=== PATIENT | male | born 1940 | race Caucasian/White ===

== ENCOUNTER 2020-03-08 12:15 | Inpatient (IN) ==
[2020-03-08 13:02] LABS: Basophils % 0.4 %; Eosinophils # 0.1 K/mcL (0.0-0.6); Eosinophils % 0.8 %; Hematocrit 37.5 % (37.5-50.1); Hemoglobin 12.4 g/dL (12.9-16.9); Immature Granulocytes % 0.3 % (0-4); Lymphocytes # 1.3 K/mcL (0.6-4.6); Lymphocytes % 15.9 %; Mean Corpuscular HGB Conc 33.1 g/dL (31.6-35.5); Mean Corpuscular Hemoglobin 31.2 pg (28.0-33.3); Mean Corpuscular Volume 94.2 fL (83.0-100.0); Mean Platelet Volume 11.3 fL (9.4-12.4); Monocytes # 0.8 K/mcL (0.0-1.3); Monocytes % 9.9 %; Neutrophils # 5.8 K/mcL (1.6-8.9); Platelet Count 200 K/mcL (140-400); Red Blood Count 3.98 M/mcL (4.19-5.50); Red Cell Distribution Width 12.6 % (11.5-14.5); Segmented Neutrophils % 72.7 %; White Blood Count 7.9 K/mcL (4.3-11.1)
[2020-03-08] MEDS ORDERED: Isovue-370 500 ML BOTTLE IVP ONE (13:02)
[2020-03-08 13:21] LABS: BUN/Creatinine Ratio 21 (6-26); Blood Urea Nitrogen 26 mg/dL (8-23); Calcium 9.4 mg/dL (8.6-10.3); Carbon Dioxide 24 mEq/L (23-29); Chloride 108 mEq/L (98-107); Glucose 95 mg/dL (70-105); Osmolality,Calculated 297 (280-300); Potassium 3.7 mEq/L (3.5-5.1); Sodium 141 mEq/L (136-145); eGFR For African Americans > 60 (> 60); eGFR For Non-African Americans 57 (> 60)
[2020-03-08 13:22] LABS: Troponin I < 0.03 ng/mL (< 0.04)
[2020-03-08] MEDS ORDERED: Ondansetron 4 MG/2 ML VIAL IVP ONE (13:25)
[2020-03-08] MEDS ORDERED: Naloxone 0.4 MG/ML INJ IVP PRN (17:36)
[2020-03-08] MEDS ORDERED: Ipratropium/Albuterol Neb 3 ML IH PRN (17:41)
[2020-03-08] MEDS ORDERED: 0.9 % Sodium Chloride 500 ML IVC SCH (17:45)
[2020-03-08] MEDS: Pregabalin 50 MG CAPSULE PO SCH (19:52)
[2020-03-08] MEDS: *HR* OxyCODONE/APAP 5/325 TABLET PO PRN (19:52)
[2020-03-09 08:58] LABS: Basophils % 0.5 %; Eosinophils # 0.1 K/mcL (0.0-0.6); Eosinophils % 2.2 %; Hematocrit 43.3 % (37.5-50.1); Hemoglobin 13.8 g/dL (12.9-16.9); Lymphocytes # 1.2 K/mcL (0.6-4.6); Lymphocytes % 21.1 %; Mean Corpuscular HGB Conc 31.9 g/dL (31.6-35.5); Mean Corpuscular Hemoglobin 31.2 pg (28.0-33.3); Mean Platelet Volume 11.1 fL (9.4-12.4); Monocytes # 0.6 K/mcL (0.0-1.3); Monocytes % 11.1 %; Neutrophils # 3.8 K/mcL (1.6-8.9); Platelet Count 188 K/mcL (140-400); Red Blood Count 4.42 M/mcL (4.19-5.50); Red Cell Distribution Width 12.6 % (11.5-14.5); Segmented Neutrophils % 65.1 %; White Blood Count 5.8 K/mcL (4.3-11.1)
[2020-03-09] MEDS: Pregabalin 50 MG CAPSULE PO SCH ×2 (08:59→20:00)
[2020-03-09] MEDS: *HR* Rivaroxaban 10 MG TABLET PO SCH (08:59)
[2020-03-09] MEDS: *HR* OxyCODONE/APAP 5/325 TABLET PO PRN (09:07)
[2020-03-09 09:17] LABS: BUN/Creatinine Ratio 21 (6-26); Blood Urea Nitrogen 24 mg/dL (8-23); Calcium 9.6 mg/dL (8.6-10.3); Carbon Dioxide 26 mEq/L (23-29); Chloride 108 mEq/L (98-107); Glucose 105 mg/dL (70-105); Osmolality,Calculated 294 (280-300); Sodium 140 mEq/L (136-145); eGFR For African Americans > 60 (> 60); eGFR For Non-African Americans > 60 (> 60)
[2020-03-09] MEDS ORDERED: hydroCHLOROthiazide 25 MG TABLET PO SCH (11:45)
[2020-03-09] MEDS ORDERED: Acetaminophen 325 MG TABLET PO PRN (18:28)
[2020-03-10] MEDS ORDERED: Regadenoson 0.4 MG/5 ML SYRINGE IVP ONE (06:00)
[2020-03-10] MEDS: *HR* Rivaroxaban 10 MG TABLET PO SCH (09:25)
[2020-03-10] MEDS: Pregabalin 50 MG CAPSULE PO SCH (09:25)
[2020-03-10 09:40] LABS: Hematocrit 38.7 % (37.5-50.1); Hemoglobin 12.6 g/dL (12.9-16.9); Mean Corpuscular HGB Conc 32.6 g/dL (31.6-35.5); Mean Corpuscular Hemoglobin 31.7 pg (28.0-33.3); Mean Corpuscular Volume 97.5 fL (83.0-100.0); Platelet Count 183 K/mcL (140-400); Red Blood Count 3.97 M/mcL (4.19-5.50); Red Cell Distribution Width 12.5 % (11.5-14.5); White Blood Count 7.1 K/mcL (4.3-11.1)
[2020-03-10 10:00] LABS: BUN/Creatinine Ratio 22 (6-26); Blood Urea Nitrogen 24 mg/dL (8-23); Carbon Dioxide 29 mEq/L (23-29); Chloride 108 mEq/L (98-107); Glucose 145 mg/dL (70-105); Osmolality,Calculated 297 (280-300); Potassium 3.9 mEq/L (3.5-5.1); Sodium 140 mEq/L (136-145); eGFR For African Americans > 60 (> 60); eGFR For Non-African Americans > 60 (> 60)
[2020-03-10 11:10] VITALS: BP 151/73
== END 2020-03-10 13:15 | disposition home or self-care (01) | DRG 313 ==
LOC: 3BNU 12:15 → EMEROOARM 12:15 → 3BNU 18:31 → SUATTDRO 03-09 13:42
PROVIDERS: ADMIT Pharmacist; ATTEND Internal Medicine